=== PATIENT | male | born 1965 | race African-American/Black ===

== ENCOUNTER 2023-05-08 12:44 | Inpatient (IN) | payer OTHER ==
[2023-05-08 13:49] VITALS: BMI 24.8
[2023-05-08] MEDS ORDERED: cloNIDine HCL 0.1 MG TABLET PO ONE (17:30)
[2023-05-08] MEDS ORDERED: cloNIDine HCL 0.1 MG TABLET ONE (17:58)
[2023-05-08] MEDS ORDERED: NALOXONE HCL (KLOXXADO) 8 MG SPRAY NS PRN (21:31)
[2023-05-08] MEDS ORDERED: COLLOIDAL OATMEAL 1 BAR EACH TP PRN (21:31)
[2023-05-08] MEDS ORDERED: POLYETHYLENE GLYCOL (HEALTHYLAX) 3350 17 GM PACKET PO PRN (21:31)
[2023-05-08] MEDS ORDERED: ACETAMINOPHEN 325 MG TABLET (FP) PO PRN (21:31)
[2023-05-08] MEDS ORDERED: NALOXONE HCL 0.4 MG/ML VIAL IM PRN (21:31)
[2023-05-08] MEDS ORDERED: MAGNESIUM HYDROX 2400MG/30ML ORAL SUSPENSION 30 ML CUP PO PRN (21:31)
[2023-05-08] MEDS ORDERED: BENZONATATE 200 MG CAPSULE PO PRN (21:31)
[2023-05-08] MEDS ORDERED: BENZOCAINE/MENTHOL (CHLORASEPTIC ) LOZENGE MM PRN (21:31)
[2023-05-08] MEDS ORDERED: P-EPHED 60MG/TRIPROLIDI 2.5MG TABLET PO PRN (21:31)
[2023-05-08] MEDS ORDERED: guaiFENesin 600 MG TABLET.ER (FP) PO PRN (21:31)
[2023-05-08] MEDS ORDERED: ACETAMINOPHEN 500 MG TABLET (FP) PO PRN (21:33)
[2023-05-08] MEDS: THIAMINE HCL 100 MG TABLET (FP) PO SCH (23:07)
[2023-05-08] MEDS: ATORVASTATIN CA 10 MG TABLET (FP) PO SCH (23:07)
[2023-05-08] MEDS: MELATONIN 5 MG TABLETS PO SCH (23:08)
[2023-05-09] MEDS: IBUPROFEN 600 MG TABLET (FP) PO PRN (06:39)
[2023-05-09] MEDS: hydrOXYzine PAMOATE 25 MG CAPSULE (FP) PO PRN (06:40)
[2023-05-09] MEDS ORDERED: methaDONE HCL 40 MG DISPERSABLE TABLET PO SCH (10:00)
[2023-05-09] MEDS: PRENATAL VITAMINS W/ FOLIC ACID TABLET (FP) PO SCH (10:12)
[2023-05-09] MEDS: amLODIPine BESYLATE 10 MG TABLET (FP) PO SCH (10:12)
[2023-05-09] MEDS: TAMSULOSIN HCL 0.4 MG CAP PO SCH (10:12)
[2023-05-09] MEDS: ASPIRIN 81 MG CHEWABLE TABLETS PO SCH (10:12)
[2023-05-09] MEDS ORDERED: TUBERCULIN PPD 5 TU/0.1ML SYRINGE (IN PATIENT USE ONLY) ID ONE (12:00)
[2023-05-09 12:41] LABS: HEMATOCRIT 37.3 % (35.4-49); HEMOGLOBIN 12.5 GM/dL (11.7-16.9); MCH 28.9 pg (25.7-33.7); MCHC 33.6 g/dl (32.0-35.9); MEAN CELL VOLUME 86.2 fl (80-96); MEAN PLT VOLUME 9.4 fl (7.5-11.1); PLATELET COUNT 233 10^3/uL (134-434); RBC 4.33 M/mm3 (4.00-5.60); RDW 16.3 % (11.9-15.9); WHITE BLOOD COUNT 8.2 K/mm3 (4.0-10.0)
[2023-05-09 12:42] LABS: CHLORIDE 103 mmol/L (98-107); POTASSIUM 4.5 mmol/L (3.5-5.1); SODIUM 138 mmol/L (136-145)
[2023-05-09 12:50] LABS: ALBUMIN 3.3 g/dl (3.4-5.0); ANION GAP 5 mmol/L (4-13); BLOOD UREA NITROGEN 20.5 mg/dL (7-18); CALCIUM 9.8 mg/dL (8.5-10.1); CO2 30 mmol/L (21-32); GLUCOSE,RANDOM 132 mg/dL (74-106)
[2023-05-09 12:53] LABS: SGOT/AST 27 U/L (15-37); SGPT/ALT 44 U/L (13-61)
[2023-05-09 12:54] LABS: BILIRUBIN,TOTAL 0.5 mg/dL (0.2-1); TOT PROT 6.6 g/dl (6.4-8.2)
[2023-05-09 12:56] LABS: ALK PHOS 148 U/L (45-117)
[2023-05-09 13:39] LABS: SYPHILIS W/ RPR CONF REACTIVE (NONREACTIVE)
[2023-05-09] MEDS ORDERED: LISINOPRIL 20 MG TABLET PO SCH (15:45)
[2023-05-09] MEDS ORDERED: PATIENT'S OWN MEDICATION (NON-FORMULARY) (Lisinopril [Lisinopril] 40 MG Tablet) PO SCH (15:45)
[2023-05-09] MEDS: MELATONIN 5 MG TABLETS PO SCH (21:23)
[2023-05-09] MEDS: THIAMINE HCL 100 MG TABLET (FP) PO SCH (21:23)
[2023-05-09] MEDS: ATORVASTATIN CA 10 MG TABLET (FP) PO SCH (21:23)
[2023-05-10] MEDS: TAMSULOSIN HCL 0.4 MG CAP PO SCH (09:30)
[2023-05-10] MEDS: PRENATAL VITAMINS W/ FOLIC ACID TABLET (FP) PO SCH (09:50)
[2023-05-10] MEDS: ASPIRIN 81 MG CHEWABLE TABLETS PO SCH (09:50)
[2023-05-10] MEDS: amLODIPine BESYLATE 10 MG TABLET (FP) PO SCH (09:50)
[2023-05-10] MEDS: NICOTINE POLACRILEX 2 MG GUM BUC PRN ×2 (09:53→13:28)
[2023-05-10] MEDS: HYDROCHLOROTHIAZIDE 12.5 MG CAPSULE (FP) PO SCH (11:00)
[2023-05-10 13:45] LABS: POTASSIUM 4.6 mmol/L (3.5-5.1)
[2023-05-10 13:50] LABS: ALBUMIN 3.1 g/dl (3.4-5.0); BLOOD UREA NITROGEN 16.3 mg/dL (7-18); CALCIUM 9.5 mg/dL (8.5-10.1)
[2023-05-10 13:52] LABS: BILIRUBIN,TOTAL 0.4 mg/dL (0.2-1); CREATININE 0.7 mg/dL (0.55-1.3); TOT PROT 6.4 g/dl (6.4-8.2)
[2023-05-10] MEDS: THIAMINE HCL 100 MG TABLET (FP) PO SCH (21:03)
[2023-05-10] MEDS: ATORVASTATIN CA 10 MG TABLET (FP) PO SCH (21:03)
[2023-05-10] MEDS: SUVOREXANT 5 MG TABLET PO PRN (21:04)
[2023-05-11] MEDS: amLODIPine BESYLATE 10 MG TABLET (FP) PO SCH (07:10)
[2023-05-11] MEDS: LOPERAMIDE HCL 2 MG CAPSULE PO PRN (07:10)
[2023-05-11] MEDS: PRENATAL VITAMINS W/ FOLIC ACID TABLET (FP) PO SCH (10:00)
[2023-05-11] MEDS: TAMSULOSIN HCL 0.4 MG CAP PO SCH (10:00)
[2023-05-11] MEDS: HYDROCHLOROTHIAZIDE 12.5 MG CAPSULE (FP) PO SCH (10:00)
[2023-05-11] MEDS: ASPIRIN 81 MG CHEWABLE TABLETS PO SCH (10:01)
[2023-05-11] MEDS: MAG HYDROX/AL HYDROX/SIMETH 30 ML UNIT-DOSE CUP PO PRN (16:45)
[2023-05-11 20:34] LABS: URINE APPEARANCE CLEAR; URINE BILIRUBIN NEGATIVE (NEGATIVE); URINE COLOR YELLOW; URINE GLUCOSE (UA) NEGATIVE (NEGATIVE); URINE KETONE NEGATIVE (NEGATIVE); URINE LEUK ESTERASE NEGATIVE (NEGATIVE); URINE NITRITE NEGATIVE (NEGATIVE); URINE PROTEIN NEGATIVE (NEGATIVE); URINE UROBILINOGEN 0.2 mg/dL (0.2-1.0)
[2023-05-11] MEDS: THIAMINE HCL 100 MG TABLET (FP) PO SCH (21:26)
[2023-05-11] MEDS: ATORVASTATIN CA 10 MG TABLET (FP) PO SCH (21:26)
[2023-05-11] MEDS: SUVOREXANT 5 MG TABLET PO PRN (21:27)
[2023-05-12] MEDS: LOPERAMIDE HCL 2 MG CAPSULE PO PRN (04:24)
[2023-05-12] MEDS: amLODIPine BESYLATE 10 MG TABLET (FP) PO SCH (07:06)
[2023-05-12] MEDS: TAMSULOSIN HCL 0.4 MG CAP PO SCH (08:33)
[2023-05-12] MEDS: PRENATAL VITAMINS W/ FOLIC ACID TABLET (FP) PO SCH (10:13)
[2023-05-12] MEDS: HYDROCHLOROTHIAZIDE 12.5 MG CAPSULE (FP) PO SCH (10:14)
[2023-05-12] MEDS: ASPIRIN 81 MG CHEWABLE TABLETS PO SCH (10:14)
[2023-05-12] MEDS: NICOTINE POLACRILEX 2 MG GUM BUC PRN ×2 (18:21→22:48)
[2023-05-12] MEDS: SUVOREXANT 5 MG TABLET PO PRN (22:01)
[2023-05-12] MEDS: THIAMINE HCL 100 MG TABLET (FP) PO SCH (22:02)
[2023-05-12] MEDS: ATORVASTATIN CA 10 MG TABLET (FP) PO SCH (22:02)
[2023-05-13] MEDS: LOPERAMIDE HCL 2 MG CAPSULE PO PRN (02:57)
[2023-05-13] MEDS: amLODIPine BESYLATE 10 MG TABLET (FP) PO SCH (07:00)
[2023-05-13] MEDS: PRENATAL VITAMINS W/ FOLIC ACID TABLET (FP) PO SCH (09:26)
[2023-05-13] MEDS: ASPIRIN 81 MG CHEWABLE TABLETS PO SCH (09:26)
[2023-05-13] MEDS: HYDROCHLOROTHIAZIDE 12.5 MG CAPSULE (FP) PO SCH (09:26)
[2023-05-13] MEDS: TAMSULOSIN HCL 0.4 MG CAP PO SCH (09:26)
[2023-05-13] MEDS: NICOTINE POLACRILEX 2 MG GUM BUC PRN ×2 (15:59→18:50)
[2023-05-13] MEDS: ATORVASTATIN CA 10 MG TABLET (FP) PO SCH (21:02)
[2023-05-13] MEDS: THIAMINE HCL 100 MG TABLET (FP) PO SCH (21:03)
[2023-05-13] MEDS: SUVOREXANT 5 MG TABLET PO PRN (21:44)
[2023-05-14] MEDS: LOPERAMIDE HCL 2 MG CAPSULE PO PRN (01:52)
[2023-05-14] MEDS: IBUPROFEN 600 MG TABLET (FP) PO PRN (01:52)
[2023-05-14] MEDS: amLODIPine BESYLATE 10 MG TABLET (FP) PO SCH (06:12)
[2023-05-14] MEDS: TAMSULOSIN HCL 0.4 MG CAP PO SCH (10:05)
[2023-05-14] MEDS: PRENATAL VITAMINS W/ FOLIC ACID TABLET (FP) PO SCH (10:05)
[2023-05-14] MEDS: HYDROCHLOROTHIAZIDE 12.5 MG CAPSULE (FP) PO SCH (10:05)
[2023-05-14] MEDS: ASPIRIN 81 MG CHEWABLE TABLETS PO SCH (10:05)
[2023-05-14] MEDS: MAG HYDROX/AL HYDROX/SIMETH 30 ML UNIT-DOSE CUP PO PRN (10:07)
[2023-05-14] MEDS: ATORVASTATIN CA 10 MG TABLET (FP) PO SCH (21:29)
[2023-05-14] MEDS: SUVOREXANT 5 MG TABLET PO PRN (21:29)
[2023-05-14] MEDS: THIAMINE HCL 100 MG TABLET (FP) PO SCH (21:29)
[2023-05-15] MEDS: amLODIPine BESYLATE 10 MG TABLET (FP) PO SCH (06:21)
[2023-05-15] MEDS: MAG HYDROX/AL HYDROX/SIMETH 30 ML UNIT-DOSE CUP PO PRN (07:06)
[2023-05-15] MEDS: PRENATAL VITAMINS W/ FOLIC ACID TABLET (FP) PO SCH (09:40)
[2023-05-15] MEDS: TAMSULOSIN HCL 0.4 MG CAP PO SCH (09:40)
[2023-05-15] MEDS: HYDROCHLOROTHIAZIDE 12.5 MG CAPSULE (FP) PO SCH (09:40)
[2023-05-15] MEDS: ASPIRIN 81 MG CHEWABLE TABLETS PO SCH (09:40)
[2023-05-15] MEDS: THIAMINE HCL 100 MG TABLET (FP) PO SCH (21:44)
[2023-05-15] MEDS: ATORVASTATIN CA 10 MG TABLET (FP) PO SCH (21:44)
[2023-05-15] MEDS: SUVOREXANT 5 MG TABLET PO PRN (21:45)
[2023-05-15] MEDS: NICOTINE POLACRILEX 2 MG GUM BUC PRN (21:46)
[2023-05-16] MEDS: hydrOXYzine PAMOATE 25 MG CAPSULE (FP) PO PRN (02:33)
[2023-05-16] MEDS: amLODIPine BESYLATE 10 MG TABLET (FP) PO SCH (06:19)
[2023-05-16] MEDS: MAG HYDROX/AL HYDROX/SIMETH 30 ML UNIT-DOSE CUP PO PRN (06:20)
[2023-05-16] MEDS: TAMSULOSIN HCL 0.4 MG CAP PO SCH (08:42)
[2023-05-16] MEDS: PRENATAL VITAMINS W/ FOLIC ACID TABLET (FP) PO SCH (10:01)
[2023-05-16] MEDS: HYDROCHLOROTHIAZIDE 12.5 MG CAPSULE (FP) PO SCH (10:01)
[2023-05-16] MEDS: ASPIRIN 81 MG CHEWABLE TABLETS PO SCH (10:01)
[2023-05-16] MEDS: NICOTINE POLACRILEX 2 MG GUM BUC PRN (10:04)
[2023-05-16] MEDS: ATORVASTATIN CA 10 MG TABLET (FP) PO SCH (21:51)
[2023-05-16] MEDS: THIAMINE HCL 100 MG TABLET (FP) PO SCH (21:51)
[2023-05-16] MEDS: SUVOREXANT 5 MG TABLET PO PRN (21:53)
[2023-05-17] MEDS: amLODIPine BESYLATE 10 MG TABLET (FP) PO SCH (06:31)
[2023-05-17] MEDS: NICOTINE POLACRILEX 2 MG GUM BUC PRN ×4 (06:35→21:24)
[2023-05-17] MEDS: PRENATAL VITAMINS W/ FOLIC ACID TABLET (FP) PO SCH (09:56)
[2023-05-17] MEDS: TAMSULOSIN HCL 0.4 MG CAP PO SCH (09:57)
[2023-05-17] MEDS: HYDROCHLOROTHIAZIDE 12.5 MG CAPSULE (FP) PO SCH (09:57)
[2023-05-17] MEDS: ASPIRIN 81 MG CHEWABLE TABLETS PO SCH (09:57)
[2023-05-17] MEDS: hydrOXYzine PAMOATE 25 MG CAPSULE (FP) PO PRN (21:23)
[2023-05-17] MEDS: THIAMINE HCL 100 MG TABLET (FP) PO SCH (21:23)
[2023-05-17] MEDS: ATORVASTATIN CA 10 MG TABLET (FP) PO SCH (21:23)
[2023-05-17] MEDS: SUVOREXANT 5 MG TABLET PO PRN (21:24)
[2023-05-18] MEDS: amLODIPine BESYLATE 10 MG TABLET (FP) PO SCH (06:02)
[2023-05-18] MEDS: TAMSULOSIN HCL 0.4 MG CAP PO SCH (08:47)
[2023-05-18] MEDS: MAG HYDROX/AL HYDROX/SIMETH 30 ML UNIT-DOSE CUP PO PRN (08:47)
[2023-05-18] MEDS: HYDROCHLOROTHIAZIDE 12.5 MG CAPSULE (FP) PO SCH (09:52)
[2023-05-18] MEDS: ASPIRIN 81 MG CHEWABLE TABLETS PO SCH (09:52)
[2023-05-18] MEDS: PRENATAL VITAMINS W/ FOLIC ACID TABLET (FP) PO SCH (10:10)
[2023-05-18] MEDS: ATORVASTATIN CA 10 MG TABLET (FP) PO SCH (21:28)
[2023-05-18] MEDS: SUVOREXANT 5 MG TABLET PO PRN (21:28)
[2023-05-18] MEDS: hydrOXYzine PAMOATE 25 MG CAPSULE (FP) PO PRN (21:28)
[2023-05-18] MEDS: THIAMINE HCL 100 MG TABLET (FP) PO SCH (21:28)
[2023-05-19] MEDS: amLODIPine BESYLATE 10 MG TABLET (FP) PO SCH (06:51)
[2023-05-19] MEDS: MAG HYDROX/AL HYDROX/SIMETH 30 ML UNIT-DOSE CUP PO PRN (06:55)
[2023-05-19] MEDS: PRENATAL VITAMINS W/ FOLIC ACID TABLET (FP) PO SCH (09:47)
[2023-05-19] MEDS: ASPIRIN 81 MG CHEWABLE TABLETS PO SCH (09:47)
[2023-05-19] MEDS: HYDROCHLOROTHIAZIDE 12.5 MG CAPSULE (FP) PO SCH (09:47)
[2023-05-19] MEDS: TAMSULOSIN HCL 0.4 MG CAP PO SCH (09:47)
[2023-05-19] MEDS: NICOTINE POLACRILEX 2 MG GUM BUC PRN ×2 (09:48→21:25)
[2023-05-19] MEDS: ATORVASTATIN CA 10 MG TABLET (FP) PO SCH (21:23)
[2023-05-19] MEDS: SUVOREXANT 5 MG TABLET PO PRN (21:23)
[2023-05-19] MEDS: THIAMINE HCL 100 MG TABLET (FP) PO SCH (21:23)
[2023-05-20] MEDS: amLODIPine BESYLATE 10 MG TABLET (FP) PO SCH (06:40)
[2023-05-20] MEDS: ASPIRIN 81 MG CHEWABLE TABLETS PO SCH (09:22)
[2023-05-20] MEDS: TAMSULOSIN HCL 0.4 MG CAP PO SCH (09:22)
[2023-05-20] MEDS: PRENATAL VITAMINS W/ FOLIC ACID TABLET (FP) PO SCH (09:22)
[2023-05-20] MEDS: HYDROCHLOROTHIAZIDE 12.5 MG CAPSULE (FP) PO SCH (09:22)
[2023-05-20] MEDS: NICOTINE POLACRILEX 2 MG GUM BUC PRN ×2 (15:22→21:46)
[2023-05-20] MEDS: ATORVASTATIN CA 10 MG TABLET (FP) PO SCH (21:46)
[2023-05-20] MEDS: THIAMINE HCL 100 MG TABLET (FP) PO SCH (21:46)
[2023-05-20] MEDS: SUVOREXANT 5 MG TABLET PO PRN (21:47)
[2023-05-21] MEDS: NICOTINE POLACRILEX 2 MG GUM BUC PRN ×3 (00:25→22:21)
[2023-05-21] MEDS: IBUPROFEN 400 MG TABLET (FP) PO PRN (03:05)
[2023-05-21] MEDS: hydrOXYzine PAMOATE 25 MG CAPSULE (FP) PO PRN (03:05)
[2023-05-21] MEDS: amLODIPine BESYLATE 10 MG TABLET (FP) PO SCH (06:32)
[2023-05-21] MEDS: PRENATAL VITAMINS W/ FOLIC ACID TABLET (FP) PO SCH (10:00)
[2023-05-21] MEDS: ASPIRIN 81 MG CHEWABLE TABLETS PO SCH (10:03)
[2023-05-21] MEDS: TAMSULOSIN HCL 0.4 MG CAP PO SCH (10:03)
[2023-05-21] MEDS: HYDROCHLOROTHIAZIDE 12.5 MG CAPSULE (FP) PO SCH (10:05)
[2023-05-21] MEDS: THIAMINE HCL 100 MG TABLET (FP) PO SCH (22:18)
[2023-05-21] MEDS: ATORVASTATIN CA 10 MG TABLET (FP) PO SCH (22:18)
[2023-05-21] MEDS: SUVOREXANT 5 MG TABLET PO PRN (22:18)
[2023-05-22] MEDS: amLODIPine BESYLATE 10 MG TABLET (FP) PO SCH (07:08)
[2023-05-22] MEDS: MAG HYDROX/AL HYDROX/SIMETH 30 ML UNIT-DOSE CUP PO PRN (07:08)
[2023-05-22] MEDS: HYDROCHLOROTHIAZIDE 12.5 MG CAPSULE (FP) PO SCH (09:12)
[2023-05-22] MEDS: ASPIRIN 81 MG CHEWABLE TABLETS PO SCH (09:12)
[2023-05-22] MEDS: TAMSULOSIN HCL 0.4 MG CAP PO SCH (09:12)
[2023-05-22] MEDS: PRENATAL VITAMINS W/ FOLIC ACID TABLET (FP) PO SCH (09:55)
[2023-05-22] MEDS ORDERED: methaDONE HCL 10 MG TABLET PO ONE (13:00)
[2023-05-22] MEDS: THIAMINE HCL 100 MG TABLET (FP) PO SCH (21:42)
[2023-05-22] MEDS: ATORVASTATIN CA 10 MG TABLET (FP) PO SCH (21:42)
[2023-05-22] MEDS: SUVOREXANT 5 MG TABLET PO PRN (21:42)
[2023-05-22] MEDS: NICOTINE POLACRILEX 2 MG GUM BUC PRN (21:45)
[2023-05-23] MEDS: NICOTINE POLACRILEX 2 MG GUM BUC PRN (05:34)
[2023-05-23] MEDS: amLODIPine BESYLATE 10 MG TABLET (FP) PO SCH (06:01)
[2023-05-23] MEDS: HYDROCHLOROTHIAZIDE 12.5 MG CAPSULE (FP) PO SCH (09:51)
[2023-05-23] MEDS: PRENATAL VITAMINS W/ FOLIC ACID TABLET (FP) PO SCH (09:51)
[2023-05-23] MEDS: TAMSULOSIN HCL 0.4 MG CAP PO SCH (09:51)
[2023-05-23] MEDS: ASPIRIN 81 MG CHEWABLE TABLETS PO SCH (09:52)
[2023-05-23] MEDS: SUVOREXANT 5 MG TABLET PO PRN (21:34)
[2023-05-23] MEDS: THIAMINE HCL 100 MG TABLET (FP) PO SCH (21:34)
[2023-05-23] MEDS: ATORVASTATIN CA 10 MG TABLET (FP) PO SCH (21:34)
[2023-05-24] MEDS: amLODIPine BESYLATE 10 MG TABLET (FP) PO SCH (06:41)
[2023-05-24] MEDS: TAMSULOSIN HCL 0.4 MG CAP PO SCH (09:49)
[2023-05-24] MEDS: PRENATAL VITAMINS W/ FOLIC ACID TABLET (FP) PO SCH (09:49)
[2023-05-24] MEDS: ASPIRIN 81 MG CHEWABLE TABLETS PO SCH (09:52)
[2023-05-24] MEDS: HYDROCHLOROTHIAZIDE 12.5 MG CAPSULE (FP) PO SCH (09:52)
[2023-05-24] MEDS: NICOTINE POLACRILEX 2 MG GUM BUC PRN ×3 (09:53→19:47)
[2023-05-24] MEDS: ATORVASTATIN CA 10 MG TABLET (FP) PO SCH (21:26)
[2023-05-24] MEDS: THIAMINE HCL 100 MG TABLET (FP) PO SCH (21:26)
[2023-05-25] MEDS: amLODIPine BESYLATE 10 MG TABLET (FP) PO SCH (06:21)
[2023-05-25] MEDS: TAMSULOSIN HCL 0.4 MG CAP PO SCH (09:30)
[2023-05-25] MEDS: PRENATAL VITAMINS W/ FOLIC ACID TABLET (FP) PO SCH (09:58)
[2023-05-25] MEDS: HYDROCHLOROTHIAZIDE 12.5 MG CAPSULE (FP) PO SCH (10:00)
[2023-05-25] MEDS: ASPIRIN 81 MG CHEWABLE TABLETS PO SCH (10:00)
[2023-05-25] MEDS: NICOTINE POLACRILEX 2 MG GUM BUC PRN ×4 (10:03→21:34)
[2023-05-25] MEDS: THIAMINE HCL 100 MG TABLET (FP) PO SCH (21:31)
[2023-05-25] MEDS: ATORVASTATIN CA 10 MG TABLET (FP) PO SCH (21:31)
[2023-05-25] MEDS: IBUPROFEN 600 MG TABLET (FP) PO PRN (21:32)
[2023-05-26] MEDS: NICOTINE POLACRILEX 2 MG GUM BUC PRN ×6 (04:08→21:54)
[2023-05-26] MEDS: amLODIPine BESYLATE 10 MG TABLET (FP) PO SCH (06:17)
[2023-05-26] MEDS: TAMSULOSIN HCL 0.4 MG CAP PO SCH (09:30)
[2023-05-26] MEDS: HYDROCHLOROTHIAZIDE 12.5 MG CAPSULE (FP) PO SCH (09:35)
[2023-05-26] MEDS: ASPIRIN 81 MG CHEWABLE TABLETS PO SCH (09:36)
[2023-05-26] MEDS: PRENATAL VITAMINS W/ FOLIC ACID TABLET (FP) PO SCH (09:36)
[2023-05-26] MEDS: ATORVASTATIN CA 10 MG TABLET (FP) PO SCH (21:50)
[2023-05-26] MEDS: hydrOXYzine PAMOATE 25 MG CAPSULE (FP) PO PRN (21:51)
[2023-05-26] MEDS: THIAMINE HCL 100 MG TABLET (FP) PO SCH (21:51)
[2023-05-27] MEDS: amLODIPine BESYLATE 10 MG TABLET (FP) PO SCH (06:10)
[2023-05-27] MEDS: NICOTINE POLACRILEX 2 MG GUM BUC PRN ×3 (06:11→21:50)
[2023-05-27] MEDS: ASPIRIN 81 MG CHEWABLE TABLETS PO SCH (09:59)
[2023-05-27] MEDS: TAMSULOSIN HCL 0.4 MG CAP PO SCH (09:59)
[2023-05-27] MEDS: HYDROCHLOROTHIAZIDE 12.5 MG CAPSULE (FP) PO SCH (09:59)
[2023-05-27] MEDS: PRENATAL VITAMINS W/ FOLIC ACID TABLET (FP) PO SCH (09:59)
[2023-05-27] MEDS: ATORVASTATIN CA 10 MG TABLET (FP) PO SCH (21:47)
[2023-05-27] MEDS: THIAMINE HCL 100 MG TABLET (FP) PO SCH (21:47)
[2023-05-28] MEDS: amLODIPine BESYLATE 10 MG TABLET (FP) PO SCH (06:26)
[2023-05-28] MEDS: TAMSULOSIN HCL 0.4 MG CAP PO SCH (09:31)
[2023-05-28] MEDS: PRENATAL VITAMINS W/ FOLIC ACID TABLET (FP) PO SCH (09:31)
[2023-05-28] MEDS: HYDROCHLOROTHIAZIDE 12.5 MG CAPSULE (FP) PO SCH (09:31)
[2023-05-28] MEDS: ASPIRIN 81 MG CHEWABLE TABLETS PO SCH (09:31)
[2023-05-28] MEDS: NICOTINE POLACRILEX 2 MG GUM BUC PRN ×3 (09:33→21:49)
[2023-05-28] MEDS: MAG HYDROX/AL HYDROX/SIMETH 30 ML UNIT-DOSE CUP PO PRN (16:41)
[2023-05-28] MEDS: THIAMINE HCL 100 MG TABLET (FP) PO SCH (21:47)
[2023-05-28] MEDS: hydrOXYzine PAMOATE 25 MG CAPSULE (FP) PO PRN (21:47)
[2023-05-28] MEDS: ATORVASTATIN CA 10 MG TABLET (FP) PO SCH (21:47)
[2023-05-29] MEDS: amLODIPine BESYLATE 10 MG TABLET (FP) PO SCH (06:07)
[2023-05-29 07:36] VITALS: RESP 18
[2023-05-29] MEDS: PRENATAL VITAMINS W/ FOLIC ACID TABLET (FP) PO SCH (09:08)
[2023-05-29] MEDS: TAMSULOSIN HCL 0.4 MG CAP PO SCH (09:08)
[2023-05-29] MEDS: ASPIRIN 81 MG CHEWABLE TABLETS PO SCH (09:08)
[2023-05-29] MEDS: HYDROCHLOROTHIAZIDE 12.5 MG CAPSULE (FP) PO SCH (09:08)
[2023-05-29] MEDS: ATORVASTATIN CA 10 MG TABLET (FP) PO SCH (21:37)
[2023-05-29] MEDS: THIAMINE HCL 100 MG TABLET (FP) PO SCH (21:37)
[2023-05-29] MEDS: IBUPROFEN 600 MG TABLET (FP) PO PRN (21:38)
[2023-05-30] MEDS: amLODIPine BESYLATE 10 MG TABLET (FP) PO SCH (06:09)
[2023-05-30] MEDS: NICOTINE POLACRILEX 2 MG GUM BUC PRN ×3 (06:11→21:39)
[2023-05-30] MEDS: TAMSULOSIN HCL 0.4 MG CAP PO SCH (09:38)
[2023-05-30] MEDS: ASPIRIN 81 MG CHEWABLE TABLETS PO SCH (09:40)
[2023-05-30] MEDS: PRENATAL VITAMINS W/ FOLIC ACID TABLET (FP) PO SCH (09:40)
[2023-05-30] MEDS: HYDROCHLOROTHIAZIDE 12.5 MG CAPSULE (FP) PO SCH (09:41)
[2023-05-30] MEDS: THIAMINE HCL 100 MG TABLET (FP) PO SCH (21:38)
[2023-05-30] MEDS: ATORVASTATIN CA 10 MG TABLET (FP) PO SCH (21:39)
[2023-05-31] MEDS: amLODIPine BESYLATE 10 MG TABLET (FP) PO SCH (06:31)
[2023-05-31] MEDS: NICOTINE POLACRILEX 2 MG GUM BUC PRN ×3 (06:33→21:48)
[2023-05-31] MEDS: TAMSULOSIN HCL 0.4 MG CAP PO SCH (10:06)
[2023-05-31] MEDS: PRENATAL VITAMINS W/ FOLIC ACID TABLET (FP) PO SCH (10:08)
[2023-05-31] MEDS: ASPIRIN 81 MG CHEWABLE TABLETS PO SCH (10:08)
[2023-05-31] MEDS: HYDROCHLOROTHIAZIDE 12.5 MG CAPSULE (FP) PO SCH (10:08)
[2023-05-31] MEDS ORDERED: methaDONE HCL 10 MG TABLET PO SCH (11:15)
[2023-05-31] MEDS: THIAMINE HCL 100 MG TABLET (FP) PO SCH (21:44)
[2023-05-31] MEDS: ATORVASTATIN CA 10 MG TABLET (FP) PO SCH (21:44)
[2023-05-31] MEDS: TOLNAFTATE 1% CREAM 15 GM TUBE TP SCH (21:46)
[2023-06-01] MEDS: amLODIPine BESYLATE 10 MG TABLET (FP) PO SCH (06:50)
[2023-06-01] MEDS ORDERED: methaDONE HCL 10 MG TABLET PO SCH (09:00)
[2023-06-01 09:13] LABS: POTASSIUM 4.3 mmol/L (3.5-5.1)
[2023-06-01 09:32] LABS: CALCIUM 10.1 mg/dL (8.5-10.1)
[2023-06-01 09:33] LABS: ALBUMIN 3.2 g/dl (3.4-5.0); BLOOD UREA NITROGEN 22.2 mg/dL (7-18)
[2023-06-01 09:36] LABS: CREATININE 0.8 mg/dL (0.55-1.3)
[2023-06-01 09:37] LABS: BILIRUBIN,TOTAL 0.6 mg/dL (0.2-1); TOT PROT 6.7 g/dl (6.4-8.2)
[2023-06-01 09:41] LABS: N-TERMINAL BNP 257.3 pg/ml (5-125)
[2023-06-01] MEDS: ASPIRIN 81 MG CHEWABLE TABLETS PO SCH (09:51)
[2023-06-01] MEDS: HYDROCHLOROTHIAZIDE 12.5 MG CAPSULE (FP) PO SCH (09:51)
[2023-06-01] MEDS: PRENATAL VITAMINS W/ FOLIC ACID TABLET (FP) PO SCH (09:51)
[2023-06-01] MEDS: TOLNAFTATE 1% CREAM 15 GM TUBE TP SCH ×2 (09:52→21:43)
[2023-06-01] MEDS: TAMSULOSIN HCL 0.4 MG CAP PO SCH (09:52)
[2023-06-01] MEDS: NICOTINE POLACRILEX 2 MG GUM BUC PRN ×2 (09:54→21:44)
[2023-06-01] MEDS: THIAMINE HCL 100 MG TABLET (FP) PO SCH (21:42)
[2023-06-01] MEDS: ATORVASTATIN CA 10 MG TABLET (FP) PO SCH (21:42)
[2023-06-01] MEDS: hydrOXYzine PAMOATE 25 MG CAPSULE (FP) PO PRN (21:44)
[2023-06-02] MEDS: amLODIPine BESYLATE 10 MG TABLET (FP) PO SCH (07:05)
[2023-06-02] MEDS: PRENATAL VITAMINS W/ FOLIC ACID TABLET (FP) PO SCH (09:41)
[2023-06-02] MEDS: TAMSULOSIN HCL 0.4 MG CAP PO SCH (09:41)
[2023-06-02] MEDS: ASPIRIN 81 MG CHEWABLE TABLETS PO SCH (09:41)
[2023-06-02] MEDS: HYDROCHLOROTHIAZIDE 12.5 MG CAPSULE (FP) PO SCH (09:41)
[2023-06-02] MEDS: TOLNAFTATE 1% CREAM 15 GM TUBE TP SCH ×2 (09:44→21:43)
[2023-06-02] MEDS: THIAMINE HCL 100 MG TABLET (FP) PO SCH (21:42)
[2023-06-02] MEDS: ATORVASTATIN CA 10 MG TABLET (FP) PO SCH (21:43)
[2023-06-02] MEDS: hydrOXYzine PAMOATE 25 MG CAPSULE (FP) PO PRN (21:44)
[2023-06-02] MEDS: NICOTINE POLACRILEX 2 MG GUM BUC PRN (21:45)
[2023-06-03] MEDS: amLODIPine BESYLATE 10 MG TABLET (FP) PO SCH (06:58)
[2023-06-03] MEDS: IBUPROFEN 400 MG TABLET (FP) PO PRN (07:25)
[2023-06-03] MEDS: PRENATAL VITAMINS W/ FOLIC ACID TABLET (FP) PO SCH (10:02)
[2023-06-03] MEDS: TAMSULOSIN HCL 0.4 MG CAP PO SCH (10:05)
[2023-06-03] MEDS: HYDROCHLOROTHIAZIDE 12.5 MG CAPSULE (FP) PO SCH (10:05)
[2023-06-03] MEDS: ASPIRIN 81 MG CHEWABLE TABLETS PO SCH (10:05)
[2023-06-03] MEDS: TOLNAFTATE 1% CREAM 15 GM TUBE TP SCH ×2 (10:06→21:04)
[2023-06-03] MEDS: NICOTINE POLACRILEX 2 MG GUM BUC PRN (16:42)
[2023-06-03] MEDS: IBUPROFEN 600 MG TABLET (FP) PO PRN (20:57)
[2023-06-03] MEDS: ATORVASTATIN CA 10 MG TABLET (FP) PO SCH (21:04)
[2023-06-03] MEDS: THIAMINE HCL 100 MG TABLET (FP) PO SCH (21:04)
[2023-06-04] MEDS: IBUPROFEN 400 MG TABLET (FP) PO PRN (01:15)
[2023-06-04] MEDS: NICOTINE POLACRILEX 2 MG GUM BUC PRN ×2 (01:17→06:21)
[2023-06-04] MEDS: amLODIPine BESYLATE 10 MG TABLET (FP) PO SCH (06:20)
[2023-06-04 07:04] VITALS: PULSE 70; TEMP 97.9
[2023-06-04] MEDS: PRENATAL VITAMINS W/ FOLIC ACID TABLET (FP) PO SCH (09:10)
[2023-06-04] MEDS: TAMSULOSIN HCL 0.4 MG CAP PO SCH (09:10)
[2023-06-04] MEDS: ASPIRIN 81 MG CHEWABLE TABLETS PO SCH (09:10)
[2023-06-04] MEDS: HYDROCHLOROTHIAZIDE 12.5 MG CAPSULE (FP) PO SCH (09:10)
[2023-06-04] MEDS: TOLNAFTATE 1% CREAM 15 GM TUBE TP SCH (09:11)
[2023-06-04 10:42] VITALS: BP 148/80
== END 2023-06-04 11:53 | disposition home or self-care (01) | DRG 772 ==
LOC: YASAS 12:44 → Y5N 22:10
PROVIDERS: ADMIT Allergy & Immunology; ATTEND Psychiatry & Neurology Pain Medicine
PROC: HZ42ZZZ Group Counseling for Substance Abuse Treatment, Cognitive-Behavioral (ICD-10-PCS; principal; 2023-05-08)
DX: F10.20 Alcohol dependence, uncomplicated (principal); F14.20 Cocaine dependence, uncomplicated; F11.20 Opioid dependence, uncomplicated; F17.210 Nicotine dependence, cigarettes, uncomplicated; F19.282 Other psychoactive substance dependence with psychoactive substance-induced sleep disorder; I10 Essential (primary) hypertension; E11.9 Type 2 diabetes mellitus without complications; M54.50 Low back pain, unspecified; G89.29 Other chronic pain; B35.3 Tinea pedis; Z99.89 Dependence on other enabling machines and devices
CPT/HCPCS: 36415; 80053; 80307; 81003; 82550; 82553; 82652; 82962; 83036; 83735; 83880; 84484; 85027; 86593; 86780; 86803; 87635; 93005; 93010

== ENCOUNTER 2024-10-22 13:32 | Inpatient (IN) | payer OTHER ==
[2024-10-22 14:45] VITALS: BMI 24.3
[2024-10-22] MEDS ORDERED: BENZONATATE 200 MG CAPSULE PO PRN (14:45)
[2024-10-22] MEDS ORDERED: ONDANSETRON *ODT* 4 MG TABLET SL PRN (14:45)
[2024-10-22] MEDS ORDERED: NALOXONE (NARCAN) HCL 4 MG/0.1 ML SPRAY NS PRN (14:45)
[2024-10-22] MEDS ORDERED: DICYCLOMINE HCL 10 MG CAPSULE PO PRN (14:45)
[2024-10-22] MEDS ORDERED: POLYETHYLENE GLYCOL (HEALTHYLAX) 3350 17 GM PACKET PO PRN (14:45)
[2024-10-22] MEDS ORDERED: BISMUTH SUBSALICYLATE 524 MG/30 ML PO PRN (14:45)
[2024-10-22] MEDS ORDERED: LOPERAMIDE HCL 2 MG CAPSULE PO PRN (14:45)
[2024-10-22] MEDS ORDERED: BENZOCAINE/MENTHOL (CHLORASEPTIC ) LOZENGE MM PRN (14:45)
[2024-10-22] MEDS ORDERED: guaiFENesin 600 MG TABLET.ER (FP) PO PRN (14:45)
[2024-10-22] MEDS ORDERED: MAGNESIUM HYDROX 2400MG/30ML ORAL SUSPENSION 30 ML CUP PO PRN (14:45)
[2024-10-22] MEDS ORDERED: ACETAMINOPHEN 325 MG TABLET (FP) PO PRN (14:45)
[2024-10-22] MEDS ORDERED: IBUPROFEN 400 MG TABLET (FP) PO PRN (14:45)
[2024-10-22] MEDS: PRENATAL VITAMINS W/ FOLIC ACID TABLET (FP) PO SCH (16:00)
[2024-10-22] MEDS ORDERED: methaDONE 40 MG, methaDONE 20 MG PO ONE (16:00)
[2024-10-22] MEDS: INSULIN ASPART SLIDING SCALE (NOVOLOG) 1 VIAL SQ SCH (18:04)
[2024-10-22] MEDS ORDERED: INSULIN (NOVOLOG) ASPART 100 UNITS/ML 10ML VIAL ONE (18:09)
[2024-10-22] MEDS: cloNIDine HCL 0.1 MG TABLET PO SCH (18:11)
[2024-10-22] MEDS ORDERED: cloNIDine HCL 0.1 MG TABLET ONE (18:17)
[2024-10-22] MEDS: methaDONE HCL 10 MG TABLET PO ONE (20:00)
[2024-10-22] MEDS: methaDONE 40 MG, methaDONE 20 MG PO ONE (20:15)
[2024-10-22] MEDS: IBUPROFEN 600 MG TABLET (FP) PO PRN (20:45)
[2024-10-22] MEDS: THIAMINE 100 MG TABLET PO SCH (21:26)
[2024-10-22] MEDS: MELATONIN 5 MG TABLETS PO SCH (21:26)
[2024-10-22] MEDS: METHOCARBAMOL 500 MG TABLET PO PRN (21:26)
[2024-10-22] MEDS: ATORVASTATIN CA 10 MG TABLET (FP) PO SCH (21:26)
[2024-10-22] MEDS: hydrOXYzine PAMOATE 25 MG CAPSULE (FP) PO PRN (23:53)
[2024-10-23] MEDS: methaDONE 40 MG, methaDONE 20 MG PO SCH (06:00)
[2024-10-23] MEDS: amLODIPine BESYLATE 10 MG TABLET (FP) PO SCH (06:33)
[2024-10-23] MEDS: sitaGLIPtin PHOSPHATE 50 MG TABLET PO SCH (06:33)
[2024-10-23] MEDS ORDERED: INSULIN ASPART SLIDING SCALE (NOVOLOG) 1 VIAL SQ ONE ×2 (06:57→11:45)
[2024-10-23] MEDS: TAMSULOSIN HCL 0.4 MG CAP PO SCH (07:37)
[2024-10-23] MEDS: LISINOPRIL 20 MG TABLET PO SCH (09:36)
[2024-10-23] MEDS: HYDROCHLOROTHIAZIDE 12.5 MG CAPSULE (FP) PO SCH (09:36)
[2024-10-23] MEDS: ASPIRIN 81 MG CHEWABLE TABLETS PO SCH (09:36)
[2024-10-23] MEDS: methaDONE HCL 10 MG TABLET PO ONE (09:37)
[2024-10-23] MEDS: NICOTINE 14 MG/24 HOURS TOPICAL PATCH TD SCH (09:37)
[2024-10-23 11:40] LABS: HEMATOCRIT 40.3 % (40.1-51.0); HEMOGLOBIN 13.5 g/dL (13.7-17.5); MCHC 33.5 g/dl (32.3-36.5); MEAN PLT VOLUME 11.9 fl (9.4-12.4); PLATELET COUNT 273 x10^3/uL (163-337); RDW 13.6 % (12.2-16.4)
[2024-10-23 11:55] LABS: POTASSIUM 3.1 mmol/L (3.5-5.1)
[2024-10-23 12:22] LABS: BLOOD UREA NITROGEN 13.7 mg/dL (7-18)
[2024-10-23 12:23] LABS: CALCIUM 10.1 mg/dL (8.5-10.1)
[2024-10-23 12:24] LABS: ALBUMIN 3.1 g/dl (3.4-5.0)
[2024-10-23 12:25] LABS: BILIRUBIN,TOTAL 0.4 mg/dL (0.2-1)
[2024-10-23 12:26] LABS: TOT PROT 6.2 g/dl (6.4-8.2)
[2024-10-24] MEDS ORDERED: cloNIDine HCL 0.1 MG TABLET PO PRN
[2024-10-24] MEDS ORDERED: INSULIN ASPART SLIDING SCALE (NOVOLOG) 1 VIAL SQ ONE ×2 (07:53→17:49)
[2024-10-24] MEDS: methaDONE HCL 10 MG TABLET PO ONE (09:49)
[2024-10-24] MEDS: POTASSIUM CHLORIDE ORAL LIQUID 20 MEQ/15 ML PO ONE ×2 (10:31→14:15)
[2024-10-24] MEDS: MAG HYDROX/AL HYDROX/SIMETH 30 ML UNIT-DOSE CUP PO PRN (16:45)
[2024-10-25] MEDS: methaDONE HCL 40 MG DISPERSABLE TABLET PO ONE (09:59)
[2024-10-25] MEDS ORDERED: INSULIN ASPART SLIDING SCALE (NOVOLOG) 1 VIAL SQ ONE ×2 (11:56→17:40)
[2024-10-25] MEDS: LIDOCAINE 5% TOPICAL PATCH TP SCH (14:33)
[2024-10-25] MEDS: LIDOCAINE PATCH REMOVAL MC SCH (21:55)
[2024-10-26] MEDS: methaDONE 40 MG, methaDONE 10 MG PO ONE (10:39)
[2024-10-26] MEDS: TRIMETHOBENZAMIDE HCL 200MG/2ML INJ IM ONE (12:45)
[2024-10-26 13:16] VITALS: BP 142/94; PULSE 68; RESP 20; TEMP 96.4
[2024-10-27] MEDS ORDERED: methaDONE 40 MG, methaDONE 20 MG PO ONE (10:00)
== END 2024-10-26 17:50 | disposition other institution (70) | DRG 773 ==
LOC: YASAS 13:32 → Y3N 17:21
PROVIDERS: ADMIT Allergy & Immunology; ATTEND Allergy & Immunology
PROC: HZ2ZZZZ Detoxification Services for Substance Abuse Treatment (ICD-10-PCS; principal; 2024-10-22)
DX: F11.23 Opioid dependence with withdrawal (principal); F17.210 Nicotine dependence, cigarettes, uncomplicated; F41.8 Other specified anxiety disorders; E87.6 Hypokalemia; E78.5 Hyperlipidemia, unspecified; I10 Essential (primary) hypertension; E11.9 Type 2 diabetes mellitus without complications; Z79.84 Long term (current) use of oral hypoglycemic drugs; M54.50 Low back pain, unspecified; G89.29 Other chronic pain
CPT/HCPCS: 36415; 80053; 80305; 80307; 82962; 84132; 85027; 86593; 86780; 87811; 93005; 93010

== ENCOUNTER 2024-10-26 18:02 | Inpatient (IN) | payer OTHER ==
[2024-10-26 18:47] VITALS: RESP 18
[2024-10-26] MEDS ORDERED: LOPERAMIDE HCL 2 MG CAPSULE PO PRN (19:14)
[2024-10-26] MEDS ORDERED: METHOCARBAMOL 500 MG TABLET PO PRN (19:14)
[2024-10-26] MEDS ORDERED: NICOTINE POLACRILEX 2 MG GUM BUC PRN (19:14)
[2024-10-26] MEDS ORDERED: POLYETHYLENE GLYCOL (HEALTHYLAX) 3350 17 GM PACKET PO PRN (19:14)
[2024-10-26] MEDS ORDERED: guaiFENesin 600 MG TABLET.ER (FP) PO PRN (19:14)
[2024-10-26] MEDS ORDERED: NALOXONE (NARCAN) HCL 4 MG/0.1 ML SPRAY NS PRN (19:14)
[2024-10-26] MEDS ORDERED: IBUPROFEN 600 MG TABLET (FP) PO PRN (19:14)
[2024-10-26] MEDS ORDERED: BENZOCAINE/MENTHOL (CHLORASEPTIC ) LOZENGE MM PRN (19:14)
[2024-10-26] MEDS ORDERED: BENZONATATE 200 MG CAPSULE PO PRN (19:14)
[2024-10-26] MEDS ORDERED: NALOXONE HCL 0.4 MG/ML VIAL IVPUSH PRN (19:14)
[2024-10-26] MEDS ORDERED: MAGNESIUM HYDROX 2400MG/30ML ORAL SUSPENSION 30 ML CUP PO PRN (19:14)
[2024-10-26] MEDS ORDERED: IBUPROFEN 400 MG TABLET (FP) PO PRN (19:14)
[2024-10-26] MEDS ORDERED: NICOTINE POLACRILEX 2 MG LOZENGE BC PRN (19:14)
[2024-10-26] MEDS: ATORVASTATIN CA 10 MG TABLET (FP) PO SCH (21:38)
[2024-10-26] MEDS: MELATONIN 5 MG TABLETS PO SCH (21:38)
[2024-10-26] MEDS: THIAMINE 100 MG TABLET PO SCH (21:38)
[2024-10-27] MEDS: ACETAMINOPHEN 325 MG TABLET (FP) PO PRN (04:02)
[2024-10-27] MEDS: MAG HYDROX/AL HYDROX/SIMETH 30 ML UNIT-DOSE CUP PO PRN (04:02)
[2024-10-27] MEDS ORDERED: methaDONE HCL 40 MG DISPERSABLE TABLET PO SCH (06:15)
[2024-10-27] MEDS: amLODIPine BESYLATE 10 MG TABLET (FP) PO SCH (06:54)
[2024-10-27] MEDS: sitaGLIPtin PHOSPHATE 50 MG TABLET PO SCH (06:54)
[2024-10-27] MEDS: TAMSULOSIN HCL 0.4 MG CAP PO SCH (07:41)
[2024-10-27 11:10] VITALS: BP 132/87; PULSE 85; TEMP 96.3
[2024-10-27] MEDS: PNEUMOC 20-VAL CONJ-DIP CRM/PF 0.5 ML SYRINGE IM ONE (11:14)
[2024-10-27] MEDS: PANTOPRAZOLE 20 MG TABLET PO SCH (11:14)
[2024-10-27] MEDS: PRENATAL VITAMINS W/ FOLIC ACID TABLET (FP) PO SCH (11:15)
[2024-10-27] MEDS: LISINOPRIL 20 MG TABLET PO SCH (11:15)
[2024-10-27] MEDS: ASPIRIN 81 MG CHEWABLE TABLETS PO SCH (11:15)
[2024-10-27] MEDS: HYDROCHLOROTHIAZIDE 12.5 MG CAPSULE (FP) PO SCH (11:15)
== END 2024-10-27 23:56 | disposition short-term general hospital (02) | DRG 772 ==
LOC: YASAS 18:02 → Y3W 18:04
PROVIDERS: ADMIT Psychiatry & Neurology Pain Medicine; ATTEND Psychiatry & Neurology Pain Medicine
PROC: HZ42ZZZ Group Counseling for Substance Abuse Treatment, Cognitive-Behavioral (ICD-10-PCS; principal; 2024-10-26)
DX: F11.20 Opioid dependence, uncomplicated (principal); F14.20 Cocaine dependence, uncomplicated; F12.20 Cannabis dependence, uncomplicated; F17.210 Nicotine dependence, cigarettes, uncomplicated; F41.8 Other specified anxiety disorders; I10 Essential (primary) hypertension; E78.5 Hyperlipidemia, unspecified; E11.9 Type 2 diabetes mellitus without complications; Z79.84 Long term (current) use of oral hypoglycemic drugs; M54.50 Low back pain, unspecified; G89.29 Other chronic pain; Z59.01 Sheltered homelessness
CPT/HCPCS: 36415; 82962; 87389; 93005; 93010